=== PATIENT | male | born 1940 | race Caucasian/White ===

== ENCOUNTER → 2019-10-30 | Outpatient (CLI) | payer OTHER | LOC: SJCVCIMAG 11:20 | DX: I08.8 Other rheumatic multiple valve diseases (principal); I42.8 Other cardiomyopathies; I48.91 Unspecified atrial fibrillation; I25.10 Atherosclerotic heart disease of native coronary artery without angina pectoris; E78.00 Pure hypercholesterolemia, unspecified; J44.9 Chronic obstructive pulmonary disease, unspecified; I10 Essential (primary) hypertension; E78.5 Hyperlipidemia, unspecified ==

== ENCOUNTER → 2019-11-05 | Outpatient (CLI) | payer OTHER | LOC: SJCVCIMAG 09:04 | DX: I48.91 Unspecified atrial fibrillation (principal); I42.8 Other cardiomyopathies; I25.10 Atherosclerotic heart disease of native coronary artery without angina pectoris; R06.00 Dyspnea, unspecified; I10 Essential (primary) hypertension; F17.210 Nicotine dependence, cigarettes, uncomplicated ==

== ENCOUNTER → 2019-11-21 | Outpatient (CLI) | payer OTHER | LOC: SJCVC 13:09 | DX: Z79.899 Other long term (current) drug therapy (principal) ==

== ENCOUNTER → 2020-05-07 | Outpatient (CLI) | payer OTHER | LOC: SJCVC 14:12 | PROVIDERS: ATTEND Internal Medicine Cardiovascular Disease | DX: I25.10 Atherosclerotic heart disease of native coronary artery without angina pectoris (principal); I73.9 Peripheral vascular disease, unspecified; I10 Essential (primary) hypertension; E78.00 Pure hypercholesterolemia, unspecified; I65.29 Occlusion and stenosis of unspecified carotid artery; I42.8 Other cardiomyopathies; I48.91 Unspecified atrial fibrillation; D68.59 Other primary thrombophilia; I71.4 Abdominal aortic aneurysm, without rupture; F17.210 Nicotine dependence, cigarettes, uncomplicated; Z79.82 Long term (current) use of aspirin; Z79.899 Other long term (current) drug therapy; Z82.49 Family history of ischemic heart disease and other diseases of the circulatory system ==

== ENCOUNTER 2021-03-08 11:58 | Inpatient (IN) | payer MEDICARE ==
[~2021-03-08] VITALS: Ht 170.2 cm; Wt 54.9 kg
[2021-03-08 12:19] VITALS: BP 158/81
[2021-03-08] MEDS ORDERED: XARELTO2.5 MG PO (12:32)
[2021-03-08] MEDS ORDERED: DESYREL150 MG PO (12:33)
[2021-03-08] MEDS ORDERED: TOPROL XL50 MG PO (12:33)
[2021-03-08 12:41] LABS: ABSOLUTE NEUTROPHILS 4.7 thou/uL (1.4-8.2); BASOPHILS 0.8 % (0.0-2.0); EOSINOPHILS 1.8 % (0.0-3.0); HEMATOCRIT 41.2 % (42.0-52.0); HEMOGLOBIN 13.7 gm/dL (14.0-18.0); MCHC 33.3 g/dL (28.0-37.0); MONOCYTES 5.5 % (1.0-8.0); PLATELET COUNT 236 thou/uL (150-400); POLYS 75.9 % (36.0-66.0); RBC 4.17 mil/uL (4.50-6.00); RDW 13.6 % (10.5-14.5); WBC 6.2 thou/uL (4.0-11.0)
[2021-03-08 12:55] LABS: ANION GAP 11 mmol/L (7-16); BUN 26 mg/dL (7-18); CALCIUM 9.3 mg/dL (8.5-10.1); CHLORIDE 102 mmol/L (98-107); CO2 27 mmol/L (21-32); CREATININE 1.3 mg/dL (0.7-1.3); GLUCOSE 111 mg/dL (74-106); POTASSIUM 4.7 mmol/L (3.5-5.1); SODIUM 140 mmol/L (136-145)
[2021-03-08 13:00] LABS: BE(vivo) -1.7 mmol/L (-2 to +3); HCO3 22.5 mmol/L (22.0-26.0); PCO2 36.3 mmHg (35.0-45.0); PO2 102.6 mmHg (80.0-100.0); sO2 97.8 % (92.0-98.0)
[2021-03-08 13:08] LABS: ALBUMIN 3.5 g/dL (3.4-5.0); SGOT 24 U/L (15-37); SGPT 19 U/L (16-63); TOTAL BILIRUBIN 0.6 mg/dL (0.2-1.0); TOTAL PROTEIN 6.7 g/dL (6.4-8.2); TROPONIN-I <0.06 ng/mL (<0.06)
--- NOTE | 2021-03-08 14:25 | EKG ---
[address] [address] ELECTROCARDIOGRAM REPORT Name: ROZINA LOVE Room #: [facility]#: [id number] Admission: 03/08/21 Attend Phys: Discharge: Date of : 38 Report #: [id number] [facility] ED Test Date: 2021-03-08 Test Time: 12:12:00 Pat Name: ROZINA LOVE Department: Room: Gender: M Flight Engineer: : 1940 Requested By: Savannah Potts Order Number: [id number] MD: Terence Morales Measurements Intervals [place] Rate: 116 P: MT: QRS: -32 QRSD: 89 T: 44 QT: 344 QTc: 478 Interpretive Statements Atrial fibrillation Left axis deviation Borderline repolarization abnormality No previous ECG available for comparison Electronically Signed On 03-08-2021 14:25:09 CDT by Terence Morales [email or web address] <ELECTRONICALLY SIGNED> By: Terence Morales MD, [facility] 03/08/21 1425 1212 1212 Terence Morales MD, FACC /EPI
[2021-03-08 16:12] LABS: FOLIC ACID 21.6 ng/mL (8.6-58.9)
[2021-03-08 23:13] VITALS: BP 121/60
[2021-03-08 23:23] VITALS: BP 111/55
[2021-03-08 23:55] VITALS: BP 115/70
--- NOTE | 2021-03-09 01:24 | NUR ---
PT ADMITTED FROM ED W/SEPSIS.PNA AND CHF.ARRIVED TO UNIT VIA CART ACCOMPANIED BY STAFF.PT A/OX4.ON O2 AT 4LITERS ON ARRIVAL.PT WAS ABLE TO TRANSFER SELF TO HIS BED FROM THE CART W/O RESPIRATORY DISTRESS.ORIENTED TO RM AND UNIT ACTIVITIES.POC REVIEWED AND INAGREEMENT.AFIB ON MONITOR.ADMISSION ASSESSMENT COMPLETED DOCUEMENTED.ALL PT QUESTIONS ADDRESSED.PT DENIES ANY NEEDS.REMAINS ON O2 AT 3LITERS PNC,HAS CONGESTED COUGH,AFEBRILE.LUNGS DIMINISHED.FALL PRECAUTIONS IN PLACE.PT HAS LEFT HIP HEALING INCISIONS W/O S/SX OF INFECTION NOTED.
[2021-03-09 03:45] VITALS: BP 110/66
[2021-03-09 06:01] LABS: ABSOLUTE NEUTROPHILS 4.1 thou/uL (1.4-8.2); BASOPHILS 0.2 % (0.0-2.0); HEMATOCRIT 33.9 % (42.0-52.0); LYMPHOCYTES 6.1 % (24.0-44.0); MCHC 33.7 g/dL (28.0-37.0); MCV 97.9 fL (80.0-100.0); MONOCYTES 1.5 % (1.0-8.0); PLATELET COUNT 180 thou/uL (150-400); POLYS 92.2 % (36.0-66.0); RBC 3.46 mil/uL (4.50-6.00); RDW 13.5 % (10.5-14.5); WBC 4.4 thou/uL (4.0-11.0)
[2021-03-09 06:02] LABS: HEMOGLOBIN 11.4 gm/dL (14.0-18.0)
[2021-03-09 06:05] LABS: CALCIUM 8.1 mg/dL (8.5-10.1); CREATININE 1.1 mg/dL (0.7-1.3); POTASSIUM 4.5 mmol/L (3.5-5.1)
[2021-03-09 07:34] VITALS: BP 110/56
--- NOTE | 2021-03-09 08:23 | 2DMMODE ---
[facility] [place] [address] 2 D/M-MODE ECHOCARDIOGRAM Name: ROZINA LOVE Room #: 359-P ADM IN M.R.#: [id number] Admission: 03/08/21 Attend Phys: Heather Tristan MD Discharge: Date of : 39 Report #: [id number] THIS REPORT FOR: cc: Savannah Barr MD, Jennifer L MD Lundgren, Craig H. MD [facility] ~ APPROVED REPORT Study performed: 03/09/2021 07:35:30 EXAM: Comprehensive 2D, Doppler, and color-flow Echocardiogram Patient Location: Bedside Room #: 359 Status: routine BSA: 1.58 HR: 80 bpm BP: 110/66 mmHg Rhythm: Atrial Fibrillation Other Information Study Quality: Adequate Technically limited study due to thin body habitus, COPD.. Indications Short of breath. Hx: CAD, CHF, AFIB, COPD, HTN, HLP, PVD. 2D Dimensions RVDd: 41.85 mm IVSd: 13.15 (7-11mm) LVOT Diam: 22.64 (18-24mm) LVDd: 55.36 mm PWd: 10.80 (7-11mm) Ascending Ao: 44.60 (22-36mm) LVDs: 48.48 (25-40mm) Left Atrium: 55.17 (27-40mm) Aortic Root: 48.59 mm Volumes Left Atrial Volume (Systole) Single Plane 4CH: 102.36 mL Single Plane 2CH: 108.32 mL LA ESV Index: 74.00 mL/m2 Aortic Valve AoV Peak Uday.: 1.28 m/s [facility] [place] [address] 2 D/M-MODE ECHOCARDIOGRAM Name: ROZINA LOVE Room #: 359-P [facility] IN [facility]#: [id number] Admission: 03/08/21 Attend Phys: Heather Tristan, Discharge: Date of : 39 Report #: [id number] AO Peak Gr.: 6.57 mmHg LVOT Max P.28 mmHg AO Mean Gr.: 3.77 mmHg AO V2 Mean: 0.93 m/s LVOT Max V: 0.75 m/s AO V2 VTI: 23.86 cm MANUEL Vmax: 2.37 cm2 Mitral Valve MV Decel. Time: 187.26 ms MV E Max Uday.: 0.98 m/s Pulmonary Valve PV Peak Uday.: 0.52 m/s PV Peak Gr.: 1.09 mmHg Tricuspid Valve TR Peak Uday.: 2.53 m/s RAP Estimate: 5.00 mmHg TR Peak Gr.: 26.00 mmHg PA Pressure: 31.00 mmHg Left Ventricle The left ventricle is normal size. Regional wall motion abnormalities are noted. Mild basal septal hypertrophy is present. Left ventricular systolic function is moderately decreased. LVEF is 40%. Akinesis base of inferior and inferolateral aviles This study is not technically sufficient to allow evaluation of the LV diastolic function due to atrial fibrillation. Right Ventricle Right ventricle is at the upper limits of normal. The right ventricular systolic function is normal. Atria Severe biatrial enlargement. Aortic Valve Aortic valve leaflets are moderately calcified. Mild to moderate aortic regurgitation. There is no aortic valvular stenosis. Mitral Valve Mild mitral annular calcification. Moderate mitral regurgitation. No evidence of mitral valve stenosis. Tricuspid Valve The tricuspid valve is normal in structure. Moderate tricuspid regurgitation. Estimated PAP is 30-35mmHg. Pulmonic Valve [facility] [address] [place] [address] 2 D/M-MODE ECHOCARDIOGRAM Name: KATEROZINA Room #: 359-P [facility] IN [facility].#: [id number] Admission: 03/08/21 Attend Phys: Heather Tristan, Discharge: Date of : 39 Report #: [id number] The pulmonary valve is normal in structure. Trace pulmonic regurgitation. Great Vessels Aortic root is dilated at 4.9cm. Ascending aorta is dilated at 4.5cm. IVC is normal in size and collapses >50% with inspiration. Pericardium There is no pericardial effusion. Pleural effusion noted. <Conclusion> Left ventricular systolic function is moderately decreased. LVEF is 40%. Akinesis base of inferior and inferolateral aviles Severe biatrial enlargement. Aortic valve leaflets are moderately calcified. Mild to moderate aortic regurgitation, no stenosis. Mild mitral annular calcification. Moderate mitral regurgitation. Moderate tricuspid regurgitation. Estimated pulmonary artery pressure of 30-35mmHg. Ascending aorta is dilated (4.5cm). There is no pericardial effusion. <ELECTRONICALLY SIGNED> By: John Frank MD, [facility] 03/09/21821 1 1 John Frank MD, [facility] /INF
--- NOTE | 2021-03-09 14:41 | NUR ---
INITIAL ASSESSMENT: SW reviewed chart and spoke with nursing and attending physician. Pt was admitted from home due to pneumonia/CHF. Pt is on 6L of O2. Pt is on IV abx, IV steroids and IV lasix. Pt had recent left hip surgery at [facility] on 02/13. SW met with pt at bedside. Introduced role of SW. Pt is alert/orientated x 4. Pt reports he lives at home with his . Pt has been using a walker since his hip surgery. There are 2 steps to enter their home and 10 steps up to the bedroom. Pt states he is currently on service with HH, but is unable to recall name of HH provider. Pt's PCP is Dr. Savannah Barr. PT/OT ordered to evaluate pt for discharge needs. SW is following to assist as needed with discharge planning.
[2021-03-09 15:26] VITALS: BP 96/46
[2021-03-09 19:59] VITALS: BP 82/51
[2021-03-09 20:00] LABS: URINE BILIRUBIN NEGATIVE (Negative); URINE BLOOD NEGATIVE (Negative); URINE CLARITY CLEAR; URINE COLOR YELLOW; URINE GLUCOSE-RANDOM* TRACE (Negative); URINE KETONES NEGATIVE (Negative); URINE LEUKOCYTES-REFLEX NEGATIVE (Negative); URINE NITRITE-REFLEX NEGATIVE (Negative); URINE PROTEIN (DIPSTICK) NEGATIVE (Negative); URINE UROBILINOGEN 0.2 E.U./dl (0.2-1.0)
[2021-03-10 05:35] VITALS: BP 94/45
--- NOTE | 2021-03-10 07:55 | NUR ---
PROGRESS PT A/O X4 LUNGS COARSE AND DIMINISHED. IV TO LAC SALINE LOCKED FLUSHES WITHOUT DIFFICULTY. RT TREATMENTS CONTINUE ON 6 LITERS O2 NOT ON HOME O2. IV ANTIBIOTICS GIVEN ORDERED. PT VOIDING QS UP WITH SBA AND WALKER USES CALL LIGHT APPROPRIATELY.
[2021-03-10 08:37] VITALS: BP 108/69
[2021-03-10 09:20] VITALS: BP 105/51
[2021-03-10 10:41] LABS: CALCIUM 8.5 mg/dL (8.5-10.1); CREATININE 1.2 mg/dL (0.7-1.3); POTASSIUM 4.8 mmol/L (3.5-5.1)
--- NOTE | 2021-03-10 13:38 | NUR ---
SAL reviewed chart and spoke with nursing and attending physician. Pt remains on 6L of O2. Pt is on IV abx, IV steroids and IV lasix. 5N consulted today to evaluate pt for inpt acute rehab. SAL received call from Dorian with [facility], who states pt is currently on service with them for . SAL provided clinical update. Faxed info to the HH office for review. SAL is following to assist as needed with discharge planning.
[2021-03-10 15:36] VITALS: BP 125/60
--- NOTE | 2021-03-10 19:33 | NUR ---
RN ASSUMED PT'S CARE AT 0700-1900PM, PT IS A&OX3 ( PERSON , TIME AND PLACE), PT IS ON O2 6L/MIN/NC, PT IS CONTINUING IV ABX, PT'S VS ARE STABLE, PT GETS UP TO CHAIR WITH ASSIST, PT DENIES PAIN AT DAY SHIFT.
[2021-03-10 19:48] VITALS: BP 105/51
[2021-03-11 03:48] VITALS: BP 96/50
--- NOTE | 2021-03-11 03:55 | NUR ---
Patient making slow progress towards outcome goals. Continues to require 6L oxygen to maintain adquate saturation. High fall risks, fall precautions in place. Calls out appropriately for needs. Slept well after Melatonin. Cough loose mostly non productive. Patient swallows most of it. Reminded of need for specimen collection, specimen cup at bedside.
[2021-03-11 08:19] VITALS: BP 109/65
--- NOTE | 2021-03-11 13:28 | NUR ---
SAL reviewed chart and spoke with nursing and attending physician. Pt remains on 6L of O2. Pt is on IV abx, IV steroids and IV lasix. SW discussed case with N service liaison representative. Pt's insurance is not in-network with . Pt walked 250 ft with therapy yesterday. SW met with pt at bedside to discuss discharge plan. Pt reports that he feels strong enough to d/c home with HH. SW explained that pt may need home O2 upon discharge. Pt verbalized understanding. Pt is currently on service with [facility]. Will need rest/exercise oximetry ordered prior to discharge to determine home O2 needs. SAL is following to assist as needed with discharge planning.
[2021-03-11 15:51] VITALS: BP 105/48
--- NOTE | 2021-03-11 19:23 | NUR ---
RN ASSUMED PT'S CARE AT 0700-1900PM, PT IS A&OX4, PT IS ON O2 5L/MIN/NC, PT'S SOB HAS IMPROVED, BUT PT STILL HAS COUGHING, PT'S VS ARE STABLE, PT GETS UP TO CHAIR WITH ASSIST.
[2021-03-11 20:20] VITALS: BP 110/55
--- NOTE | 2021-03-12 03:56 | NUR ---
ASSUMED CARE OF PATIENT AT 1900. UP TO CHAIR UNTIL BED. WALKED WITH THIS RN ONE TIME AROUND THE UNIT WITH O2 AND WALKER. TOLERATED WELL. HAD DIFFICULTY SLEEPING, BUT DENIED PAIN OR ANY OTHER ISSUES. PROGRESSING TOWARDS POC GOALS. WOULD LIKE TO TAKE A WALK OUTSIDE.
[2021-03-12 04:36] VITALS: BP 124/61
[2021-03-12 07:15] VITALS: BP 125/46
--- NOTE | 2021-03-12 09:22 | NUR ---
Received awake on bed. Due medications given as prescribed, able to swallow meds w/o difficulty. On O2 at 5lpm via nasal cannula. On telemetry; no complains and signs of chest pain, crushing sensation and heaviness. Assisted in ADLs. Vital signs stable. On heart healthy diet- tolerating well; no nausea, no vomiting and no abdominal pain noted . Continent of bowel and bladder, able to use urinal- output measured and recorded accodingly. Falls bundle in place. With SL at L Fa- intact; on IV antibiotics. Able to ambulate by using walker, gait belt and O2. No complains of pain made during assessment. To continue monitoring patient.
--- NOTE | 2021-03-12 11:49 | NUR ---
SW reviewed chart and spoke with nursing and attending physician. Pt is slowly progressing towards goals for discharge. Pt remains on 5L of O2. Pt is on IV abx and IV steroids. SAL met with pt at bedside to discuss discharge plan. Pt states that he feels weaker and is interested in post-acute placement. SW provided pt with list of in-network SNFs for review. SW explained that insurance auth will need to be obtained. Pt verbalized understanding. No weekend discharge planned. SAL updated Dorian at [facility]. SAL is following to assist as needed with discharge planning.
[2021-03-12] MEDS ORDERED: ENTRESTO 24 MG1 EACH PO (13:34)
[2021-03-12] MEDS ORDERED: SPIRONOLACTONE25 M1 PO (13:34)
[2021-03-12] MEDS ORDERED: MUCINEX600 MG PO (13:34)
[2021-03-12 15:20] VITALS: BP 129/60
[2021-03-12 20:00] VITALS: BP 138/61
--- NOTE | 2021-03-12 23:30 | NUR ---
PT ALERT AND ORIENTED X4 . VSS AFEBRILE. LUNGS DIMINISHED AND UNLABORED ON 3LNC. NO C/O SOA. BED CHANGED BATH COMPLETED. PICTURES TAKEN OF LEFT HIP INCSION, LEFT ANKLE, LEFT HEEL, LEFT GREAT TOE, LEFT CHAMPION AND SACRAL WOUNDS. DENIED PAIN. REFUSED TO TURN ON SIDE. FOAM DRESSING APPLIED TO SACRAL AREA. FEET ARE ELEVATED ON PILLOW. FOAM DRESINGS APPLIED TO LEFT HEEL AND LEFT ANKLE. MOISTURE BARRIER APPLIE. PT REFUSED TO TAKE OFF HIS SOILED UNDERWEAR. SNACK GIVEN. PT ATE 100%. CARE PLAN UPDATED.
[2021-03-13 03:53] VITALS: BP 102/60
--- NOTE | 2021-03-13 04:49 | NUR ---
PT PROGRESSING SLOWLY TOWARDS D/C GOALS. VSS. AFEBRILE THIS AM. UNLABORED ON 3LNC. VOIDS CLEAR YELLOW URINE PER URINAL. NO C/O PAIN. NO S/S DISRESS.
--- NOTE | 2021-03-13 07:36 | NUR ---
PATIENT FOUND ON 3L PATIENT DOESN'T WEAR HOME OXYGEN SAT 97% RT LOWERED OXYGEN TO 2L. PATIENT IS DIMINISH NO COMPLAINTS OF SHORTNESS OF BREATH.
[2021-03-13 08:45] VITALS: BP 138/87
[2021-03-13 16:39] VITALS: BP 128/76
--- NOTE | 2021-03-13 17:36 | NUR ---
RN ASSUMED PT'S CARE AT 0700AM, PT IS A&OX4, PT IS CONTINUING IV ABX, PT'S O2 HAS REDUCED TO 2L/MIN/NC FROM 4L/MIN/NC, PT'S VS ARE STABLE, BUT PT STILL HAS SOB WITH ACTIVITIES, PT GETS UP TO CHAIR FOR DINNER NOW, PT DENIES PAIN AT THIS TIME.
[2021-03-13 21:10] VITALS: BP 132/77
--- NOTE | 2021-03-13 21:12 | NUR ---
PT ALERT AND ORIENTED X4. VSS AFEBRILE. UNLABORED ON 2LNC. BS DIMINISHED DEMETRIA. PT SITTING UP IN CHAIR EATING SNACK. EXPLAINED RATIONALE OF PREVALON NUBIA. PT STILL REFUSED BOOTS. FOAM DRESSING INTACT TO L ANKLE,L HEEL AND SACRAL AREA.
[2021-03-14 03:39] VITALS: BP 119/61
--- NOTE | 2021-03-14 05:06 | NUR ---
PT PROGRESSING TOWARDS D/C GOALS. VSS. AFEBRILE. NO C/O PAIN. REFUSED PREVALON BOOTS TONIGHT REFUSED FOR HEELS TO BE FLOATED ON A PILLOW. NO S/S DISTRESS. UNLABORED ON 2LNC.
[2021-03-14 07:40] VITALS: BP 130/65
[2021-03-14 16:05] VITALS: BP 143/87
--- NOTE | 2021-03-14 18:21 | NUR ---
PATIENT KEEPS ATTEMPTING TO GET OUT OF BED WHEN HE WANTS TO USE THE URINAL. HE GETS UP WITHOUT CALLING FOR ASSIST. REDIRECED EASILY. PLEASAN WITH CARE. RESPIRATIONS ARE EVEN NOT LABORED AT TIME. HAD LASIX EARLIER FOR SOB. WILL CONT WITH PLAN OF CARE.
[2021-03-14 19:45] VITALS: BP 136/80
[2021-03-15 04:11] VITALS: BP 129/63
[2021-03-15 05:06] LABS: HEMATOCRIT 33.5 % (42.0-52.0); HEMOGLOBIN 11.4 gm/dL (14.0-18.0); MCH 33.3 pg (26.0-34.0); MCHC 34.1 g/dL (28.0-37.0); MCV 97.6 fL (80.0-100.0); RBC 3.43 mil/uL (4.50-6.00); RDW 13.7 % (10.5-14.5); WBC 7.3 thou/uL (4.0-11.0)
[2021-03-15 05:25] LABS: CALCIUM 8.5 mg/dL (8.5-10.1); CREATININE 0.9 mg/dL (0.7-1.3); POTASSIUM 4.3 mmol/L (3.5-5.1)
--- NOTE | 2021-03-15 06:35 | NUR ---
PT PROGRESSING SLOWLY TOWARDS D/C GOALS. RR 24 THIS AM . ENCOURAGED PT TO TC AND DB. ENCOURAGED PT TO SIT UP IN CHAIR TODAY. BREATH SOUNDS ARE DIMINISHED WITH FEW CRACKLES. NON PRODUCTIVE COUGH NOTED AT TIMES. RT NOTIFIED OF RR. WILL GIVE TX ORDERED. PRESENTLY PT IS RESTING QUIETLY WITHOUT C/O SOA. HE HAS VOIDED CLEAR YELLOW URINE SEVERAL TIMES TONIGHT.
[2021-03-15 07:25] VITALS: BP 143/76
--- NOTE | 2021-03-15 12:45 | NUR ---
cm s/w pt re snf choice. pt wanted referral sent to [facility]. cm faxed referral.
[2021-03-15 15:26] VITALS: BP 112/51
[2021-03-15 19:41] VITALS: BP 109/56
--- NOTE | 2021-03-15 22:55 | NUR ---
PT SAT UP IN CHAIR AT BEGINNING OF SHIFT. FAMILY TO CAME TO VISIT. A&OX4. DENIES ANY PAIN. C/O SOA W/ EXERTION. VSS. AFEBRILE. DRESSINGS CHANGED TO WOUNDS PER ORDERS. PT REFUSED HEEL PROTECTOR BOOTS. PT AGREED TO HAVE HEELS FLOATED OFF BED WITH PILLOWS. FALL PRECAUTIONS IN PLACE. PROGRESSING SLOWLY TOWARD POC GOALS. WILL GIVE REPORT TO ONCOMING NURSE, WHO WILL ASSUMED PT CARE AT 2300.
[2021-03-16 03:42] VITALS: BP 127/68
--- NOTE | 2021-03-16 04:39 | NUR ---
PT PROGRESSING TO DC GOALS TO SNF OR POSSIBLE BACK HOME. TOOK OVER PT CARE FROM NURSE WHO WAS FLOATING TO ER. FOLLOWING POC WITH IVPB ANTIBIOTICS. PT VOIDING VIA URINAL AND HAS GOOD OUTPUT. HOURLY ROUNDING.
[2021-03-16 07:35] VITALS: BP 144/83
--- NOTE | 2021-03-16 07:52 | NUR ---
PT STATES HE WAS HAVING INCREASED DIFFICULTY BREATHING, LEFT LUNG SOUNDS MORE DIMINISHED THAN YESTERDAY. THIS RN PAGED DR NOE, STATES HE WILL ADDRESS THIS MORNING. SATS ON 3L 93%, RR 18. INCREASED O2 TO 4L FOR PT COMFORT. SATS INCREASED TO 97%.
--- NOTE | 2021-03-16 12:14 | NUR ---
ON-GOING ASSESSMENT: CM REVIEWED CHART. CM REACHED OUT TO ADMISSIONS AT [facility] IN ATTEMPTS TO SEE IF THEY RECEIVED THE REFERRAL SENT YESTERDAY AND IF THEY HAVE CLINICALLY ACCEPTED PATIENT. AWAITING A CALL BACK AT THIS TIME.
[2021-03-16 15:12] VITALS: BP 119/63
[2021-03-16 19:50] VITALS: BP 106/61
[2021-03-17 03:47] VITALS: BP 106/57
[2021-03-17 05:21] LABS: HEMATOCRIT 33.3 % (42.0-52.0); HEMOGLOBIN 11.2 gm/dL (14.0-18.0); MCH 32.9 pg (26.0-34.0); MCHC 33.5 g/dL (28.0-37.0); RBC 3.39 mil/uL (4.50-6.00); RDW 13.7 % (10.5-14.5)
[2021-03-17 05:34] LABS: CALCIUM 8.3 mg/dL (8.5-10.1); POTASSIUM 4.5 mmol/L (3.5-5.1)
--- NOTE | 2021-03-17 06:18 | NUR ---
PT ON 2L NC AND NO ISSUES WITH 02 DROPPING OVERNIGHT. WOUND DRESSINGS INTACT AND COMPLAINTS OF WRAPPINGS BEING TOO TIGHT OVERNIGHT. PT UP TO CHAIR AND BSC WITH X1 ASSIST. AT 0225 TELE SHOWED A 15 BEAT V-TAC. STRIP PRINTED AND PLACED INTO CHART. HOURLY ROUNDING.
[2021-03-17 09:09] VITALS: BP 131/59
--- NOTE | 2021-03-17 11:45 | NUR ---
ADAIR/PERRY FROM [facility] CONFIRMED THAT THEY CAN ACCEPT PATIENT AND WILL SUBMIT FOR BLUE CROSS INSURANCE AUTHORIZATION. SHE STATED THAT THE PATIENT'S BLUE CROSS PLAN MAY TAKE SEVERAL DAYS TO OBTAIN AUTHORIZATION. SHE SUBMITTED WITH URGENCY AND WILL UPDATE US TOMORROW, 03/18/21 REGARDING STATUS. [facility] P [phone]; FAX [phone]
[2021-03-17 16:05] VITALS: BP 107/60
--- NOTE | 2021-03-17 16:27 | NUR ---
assumed care of pt at 0700. pt alert and oriented, no acute distress. weaned down to 2L NC. ambulating in hallway with walker; doing well. iv abx infusing per order. up to chair for most of day. calls out appropriately. voicing no concerns. plan of care discussed with .
[2021-03-17 19:13] VITALS: BP 141/67
[2021-03-18 03:26] VITALS: BP 111/59
--- NOTE | 2021-03-18 06:36 | NUR ---
VSS STABLE OVERNIGHT. PT CAN ROTATE HIMSELF IN THE BED AND HELP WITH REPOSITIONING. IVPB ANTIBIOTICS PER POC. PT HAD NO COMPLAINTS DURING SHIFT.
[2021-03-18 08:09] VITALS: BP 125/58
[2021-03-18 15:09] VITALS: BP 121/64
[2021-03-18 16:18] VITALS: BP 121/64
--- NOTE | 2021-03-18 16:33 | NUR ---
Pt dcing home this evening with resumption of [facility] per [facility] and new setup of O2 2lnc per [facility]. Care team discussed pt needs and pt was reevalated by therapy and RT this afternoon for dc to home vs SNF. [facility] SNF is still looking into auth with his ins plan but they have not gotten a response. They no longer have any beds available till next week 03/23/21. Pt and care team updated. All parties in agreement to dc home with hh as he did well with therapy today and is now on po meds. The pt can contact [facility] next week if he wishes to reconsider a SNF and is not doing well at home. Dc orders faxed to [facility] and referral and script faxed to [facility]. [facility] to bring a portable tank before 6pm this evening. Pt's to come btwn 6:30 and 7pm as it will be cooler this evening.
[2021-03-18] MEDS ORDERED: VITAMIN D325 MC1 PO (16:34)
[2021-03-18] MEDS ORDERED: ENTRESTO 24 MG1 EACH PO (16:34)
[2021-03-18 16:38] VITALS: BP 121/64
[2021-03-18] MEDS ORDERED: PREDNISONE 10 M10 M1 PO (16:39)
[2021-03-18] MEDS ORDERED: IPRAT-ALBUT 0.5-3 ML INH (16:39)
[2021-03-18] MEDS ORDERED: DEMADEX20 MG PO (16:39)
[2021-03-18] MEDS ORDERED: NEBULIZER MISCELL (16:39)
[2021-03-18] MEDS ORDERED: CEFUROXIME250 MG PO (16:39)
[2021-03-18] MEDS ORDERED: VENTOLIN HFA 1818 GM INH (16:40)
--- NOTE | 2021-03-18 20:05 | NUR ---
JUNAID PT'S CARE AT 1200-1930PM, PT IS A&OX4, PT IS ON O2 2L/MIN/NC, PT'S VS ARE STABLE, PT IS CONTIUNING IV ABX AND WOUND CARE , PT'S VS ARE STABLE, PT DENIES PAIN AND SOB , RN RECEIVED ORDER TO DC PT TO HOME WITH HOME HEALTH, PT AND PT'S UNDERSTAND DC TEACHING WELL, RN AND YARD GENERAL CAR SUPERVISOR SENT PT TO ER OUTSIDE DOOR, PT'S FREIGHT RATE SPECIALIST PT TO HOME AT 1930PM.
--- NOTE | 2021-03-19 12:30 | NUR ---
FAXED DISCHARGE ORDERS AND SUMMARY TO [facility]. WILL CONFIRM WITH ADAIR/LIAISON THAT THEY RECEIVED. NOTED PATIENT WENT HOME WITH [facility] ON 03/18/21 BUT AWARE OF THE BED AVAILABLE AT [facility] ON 03/23. CONFIRMED WITH CHAYO AT [facility] THAT THEY RECEIVED DISCHARGE ORDERS AND SUMMARY. THEY WILL MAKE ARRANGEMENTS TO BEGIN SERVICE ON 03/20/22. THEY ARE ALSO AWARE OF POSSIBLE BED AVAILABLE AT [facility]. [facility] P [phone]; FAX [phone]
--- NOTE | 2021-03-19 20:31 | HC ---
[facility] [place] [address] CONSULTATION Name: ROZINA LOVE JR Room #: 359-P [facility] IN ..#: [id number] Admission: 03/08/21 Attend Phys: Heather Tristan MD Discharge: 03/18/21 Date of : 39 Report #: [id number] THIS REPORT FOR: cc: Savannah Barr MD, Jennifer L MD Althoff, Jeffrey R. MD ~ DOC #: [id number] Santo Farr MD DATE OF SERVICE: 03/15/2021 CHIEF COMPLAINT: Lower extremity ulcerations. HISTORY OF PRESENT ILLNESS: This is an 81-year-old male patient admitted with pneumonia, congestive heart failure and sepsis, was noted to have lower extremity ulcerations for which I have been asked to see him. The patient is sitting up in a chair, seems pleasant, although is slow to answer any questions. He denies any pain. PAST MEDICAL HISTORY: Positive for hyperlipidemia, peripheral vascular disease, atrial fibrillation, congestive heart failure. PAST SURGICAL HISTORY: Left hip surgery on 02/13/2021. MEDICATIONS: Include Xarelto, Desyrel, metoprolol. ALLERGIES: No known drug allergies. SOCIAL HISTORY: The patient drinks 3 beers and one hard liquor beverage daily. He is currently a daily smoker. FAMILY HISTORY: Noncontributory. REVIEW OF SYSTEMS: Quite limited. The patient seems unable to answer questions and review of systems is mainly covered in the history of present illness. PHYSICAL EXAMINATION: VITAL SIGNS: Temperature 97.5, pulse 90, respiratory rate 22, blood pressure 152/88. GENERAL: This is a chronically ill-appearing male. The patient appears to be in minimal distress. HEENT: Head is normocephalic, atraumatic. Extraocular movements intact. Nose and throat are clear. NECK: Supple. LUNGS: Diminished. HEART: Irregular without murmur. ABDOMEN: Soft, bowel sounds present. [facility] [address] [address] CONSULTATION Name: ROZINA LOVE Room #: 359-P [facility]#: [id number] Admission: 03/08/21 Attend Phys: Heather Tristan MD Discharge: 03/18/21 Date of : 39 Report #: [id number] EXTREMITIES: Demonstrate multiple ulcerations to the left leg. He has an incision line that appears to be well opposed involving the left hip. He appears to have a traumatic wound to the left pretibial region. He has an unstageable pressure ulceration to the left heel and lateral ankle, has a dry eschar type covering. Sacral gluteal region demonstrates mild MASD. LABORATORY DATA: Include sodium 135, potassium 4.3, chloride 99, CO2 33, BUN 32, creatinine 0.9, albumin is 3.5. White blood cell count 7.3, hemoglobin 11.4. CLINICAL IMPRESSION: 1. Sacral gluteal MASD. 2. Surgical incision left anterior hip. 3. Traumatic wound to the left pretibial region. 4. Unstageable pressure ulcer of the left heel and lateral ankle. 5. Ulceration to the left second toe. 6. Acute hypoxemic respiratory failure with chronic obstructive pulmonary disease exacerbation and pneumonia. 7. Fluid overload related to congestive heart failure. 8. Hypertension. 9. Hyperlipidemia. 10. Chronic atrial fibrillation. 11. History of cerebrovascular accident. 12. History of tobacco and alcohol abuse. RECOMMENDATIONS: We will recommend barrier cream b.i.d. and as needed to the sacral-gluteal region, lower left surgical q. 2 hour, turning and repositioning. The surgical wound to the left hip can be left open to air. We will recommend "Betadine paint" to the pretibial region as well as to the left lateral ankle. Recommend heel protectors, Prevalon boots at all times, Betadine paint to the left second toe. Continue with other medical management, nutritional support. I appreciate being asked to see him in consultation. Santo Farr MD JRA/ELSIE <ELECTRONICALLY SIGNED> By: Santo Farr MD 03/19/212030 0712 17 Santo Farr MD /nt
== END 2021-03-18 19:55 | disposition home health service (06) | DRG 871 ==
LOC: ER 11:58 → 3W 14:17
PROVIDERS: Internal Medicine Pulmonary Disease; Nurse Practitioner; Student in an Organized Health Care Education/Training Program; ADMIT Internal Medicine; ATTEND Internal Medicine
DX: A41.9 Sepsis, unspecified organism (principal); J18.9 Pneumonia, unspecified organism; J96.21 Acute and chronic respiratory failure with hypoxia; I50.23 Acute on chronic systolic (congestive) heart failure; E46 Unspecified protein-calorie malnutrition; J44.0 Chronic obstructive pulmonary disease with (acute) lower respiratory infection; I48.20 Chronic atrial fibrillation, unspecified; J44.1 Chronic obstructive pulmonary disease with (acute) exacerbation; I42.8 Other cardiomyopathies; Z68.1 Body mass index [BMI] 19.9 or less, adult; Z20.822 Contact with and (suspected) exposure to COVID-19; I73.9 Peripheral vascular disease, unspecified; F17.210 Nicotine dependence, cigarettes, uncomplicated; R65.20 Severe sepsis without septic shock; I11.0 Hypertensive heart disease with heart failure; Z96.642 Presence of left artificial hip joint; E78.5 Hyperlipidemia, unspecified; L89.620 Pressure ulcer of left heel, unstageable; L89.520 Pressure ulcer of left ankle, unstageable; L97.529 Non-pressure chronic ulcer of other part of left foot with unspecified severity; I25.10 Atherosclerotic heart disease of native coronary artery without angina pectoris; I71.4 Abdominal aortic aneurysm, without rupture; I65.23 Occlusion and stenosis of bilateral carotid arteries; J84.10 Pulmonary fibrosis, unspecified; Y95 Nosocomial condition; G47.00 Insomnia, unspecified; R53.81 Other malaise; E55.9 Vitamin D deficiency, unspecified; F10.10 Alcohol abuse, uncomplicated; Y90.9 Presence of alcohol in blood, level not specified; M53.3 Sacrococcygeal disorders, not elsewhere classified; S80.922A Unspecified superficial injury of left lower leg, initial encounter; X58.XXXA Exposure to other specified factors, initial encounter; Z79.899 Other long term (current) drug therapy; Z79.01 Long term (current) use of anticoagulants; Z82.49 Family history of ischemic heart disease and other diseases of the circulatory system; Z86.73 Personal history of transient ischemic attack (TIA), and cerebral infarction without residual deficits; Z71.6 Tobacco abuse counseling; Y93.89 Activity, other specified; Y92.89 Other specified places as the place of occurrence of the external cause; Y99.8 Other external cause status
CPT/HCPCS: 10879